=== PATIENT | male | born 1965 | race Caucasian/White ===

== ENCOUNTER 2017-10-03 17:13 | Emergency (ER) | END 2017-10-03 23:18 | disposition home or self-care (01) ==

== ENCOUNTER 2017-10-06 13:09 | Emergency (ER) | END 2017-10-06 13:25 | disposition home or self-care (01) ==

== ENCOUNTER 2017-12-05 17:20 | Inpatient (IN) | END 2017-12-06 11:15 | disposition home or self-care (01) | DRG 684 ==

== ENCOUNTER 2018-10-27 10:22 | Inpatient (IN) | payer MEDICAID ==
[~2018-10-27] VITALS: Ht 165.1 cm; Wt 71.3 kg
[~2018-10-27 10:22] MED LIST: ASPI-817 PO; ATOR20TA38 PO; BENA5TAB33 PO; CHOL100062 PO; Insulin Glargine SC; NOVO3I SC
[2018-10-27] MEDS ORDERED: ACETAMINOPHEN 325 MG TAB PO PRN ×2 (12:00→14:00)
[2018-10-27] MEDS ORDERED: ONDANSETRON 4 MG INJ IV PRN ×2 (12:00→14:00)
--- NOTE | 2018-10-27 12:15 | ERD ---
ER Documentation Chief Complaint Chief Complaint RIGHT LEG SWELLING X 2 WEEKS, SOB WHEN LYING DOWN, PALE HPI Patient is a 53-year-old male with diabetes and kidney failure who presents with bilateral leg swelling. The right is more swollen than the left. He denies pain. He unfortunately thinks he is going into acute renal failure as this happened in 10 years ago and needed to be on dialysis. He was able to get off of dialysis and has not had an issue since. Upon review of old medical records the patient has multiple visits for various complaints. ROS All systems reviewed and are negative except as per history of present illness. Medications Home Meds Active Scripts [Insulin Glargine] 100 UNITS/ML SOLN No Conflict Check, 20 UNITS SC DAILY@1999, #1 VIAL 1 Refill Prov:FRANCISCA JACOBSON 12/06/17 Insulin Aspart* (Novolog Insulin Pen*) 100 Unit/Ml Soln, 10 UNIT SC WITH MEALS, #1 VIAL 1 Refill Prov:FRANCISCA JACOBSON 12/06/17 Reported Medications Cholecalciferol* (Vitamin D3*) 1,000 Unit Tablet, 1000 UNIT PO DAILY, TAB 12/04/17 Atorvastatin Calcium* (Atorvastatin Calcium*) 20 Mg Tablet, 20 MG PO QHS, #30 TAB 12/04/17 Aspirin* (Aspirin* EC) 81 Mg Tablet.dr, 81 MG PO DAILY, TAB 12/04/17 Benazepril Hcl* (Benazepril Hcl*) 5 Mg Tablet, 5 MG PO DAILY, #30 TAB 12/04/17 Allergies Allergies: Coded Allergies: No Known Allergies (Verified Allergy, Mild, 12/04/17) PMhx/Soc History of Surgery: No Anesthesia Reaction: No Hx Neurological Disorder: No Hx Respiratory Disorders: No Hx Cardiac Disorders: Yes (HTN) Hx Psychiatric Problems: No Hx Miscellaneous Medical Probl: No Hx Alcohol Use: No Hx Substance Use: No Hx Tobacco Use: No Smoking Status: Never smoker FmHx Family History: No diabetes Physical Exam Vitals Vital Signs Date Temp Pulse Resp B/P (MAP) Pulse Ox O2 O2 Flow FiO2 Time Delivery Rate 10/27/18 97.8 101 18 155/95 98 10:26 (115) Physical Exam Const: No acute distress Head: Atraumatic Eyes: Normal Conjunctiva ENT: Normal External Ears, Nose and Mouth. Neck: Full range of motion. No meningismus. Resp: Clear to auscultation bilaterally Cardio: Regular rate and rhythm, no murmurs Abd: Soft, non tender, non distended. Normal bowel sounds Skin: No petechiae or rashes Back: No midline or flank tenderness Ext: 2+ pitting edema bilaterally Neur: Awake and alert Psych: Normal Mood and Affect Result Diagram: 10/27/18 1105 Results 24 hrs Laboratory Tests Test 10/27/18 11:05 White Blood Count Pending Red Blood Count Pending Hemoglobin Pending Hematocrit Pending Mean Corpuscular Volume Pending Mean Corpuscular Hemoglobin Pending Mean Corpuscular Hemoglobin Concent Pending Red Cell Distribution Width Pending Platelet Count Pending Mean Platelet Volume Pending Prothrombin Time 13.5 Sec Prothrombin Time Ratio 1.1 INR International Normalized Ratio 1.02 Activated Partial Thromboplast Time 27.8 Sec Sodium Level 139 mmol/L Potassium Level 4.2 mmol/L Chloride Level 111 mmol/L Carbon Dioxide Level 21 mmol/L Anion Gap 7 Blood Urea Nitrogen 36 mg/dl Creatinine 3.99 mg/dl Est Glomerular Filtrat Rate mL/min 16 mL/min Glucose Level 166 mg/dl Calcium Level 8.5 mg/dl Total Bilirubin 0.4 mg/dl Direct Bilirubin 0.00 mg/dl Indirect Bilirubin 0.4 mg/dl Aspartate Amino Transf (AST/SGOT) 25 IU/L Alanine Aminotransferase (ALT/SGPT) 28 IU/L Alkaline Phosphatase 122 IU/L Troponin I < 0.012 ng/ml Total Protein 6.2 g/dl Albumin 3.2 g/dl Globulin 3.00 g/dl Albumin/Globulin Ratio 1.06 Lipase 187 U/L Current Medications Medications Dose Sig/Melissa Start Time Status Last (Trade) Ordered Route PRN Stop Time Admin Dose Reason Admin Ondansetron 4 mg BRIDGE ORDER 10/27/18 HCl (Zofran PRN IV 12:00 Inj) NAUSEA/VOMITI 10/28/18 11:59 NG 650 mg ER BRIDGE 10/27/18 Acetaminophen PRN PO 12:00 (Tylenol .MILD PAIN 10/28/18 11:59 Tab) 1-3 OR TEMP Procedures/MDM Patient is a 53-year-old male who presents with acute renal failure. His creatinine is 3.99 and previous creatinine was 2. The patient will be admitted to the care of the panel team to a medical surgical bed. Unfortunately if he w orsens he may require dialysis. He does have bilateral leg swelling as well which is likely related to the renal failure. CBC is pending at this time as he does appear pale and may require transfusion if his hemoglobin is less than 7. Departure Diagnosis: Primary Impression: ARF (acute renal failure) Acute renal failure type: unspecified Qualified Codes: N17.9 - Acute kidney failure, unspecified Additional Impression: CHF (congestive heart failure) Heart failure type: unspecified Heart failure chronicity: acute Qualified Codes: I50.9 - Heart failure, unspecified Condition: CHELSEA Dasilva MD Oct 27, 2018 12:15
[2018-10-27] MEDS ORDERED: ASPI-817 PO (12:23)
[2018-10-27] MEDS ORDERED: ATOR20TA38 PO (12:24)
[2018-10-27] MEDS ORDERED: OMEP20CA16 PO (12:26)
--- NOTE | 2018-10-27 13:27 | HP ---
Date/Time of Note Date/Time of Note DATE: 10/27/18 TIME: 13:27 Assessment/Plan VTE Prophylaxis Pharmacological prophylaxis: heparin Lines/Catheters IV [facility] Saline Lock Assessment/Plan Hospital Course 53-year-old male with comorbidities including hypertension, dyslipidemia, DM type II, and chronic kidney disease who presented to the emergency room with chief complaint of progressively worsening bilateral lower extremity edema and dyspnea with evidence of acute on chronic kidney disease and bilateral pleural effusions, who will be admitted to inpatient setting for further treatment and evaluation. 1. Fluid overload. Most probably secondary to worsening renal function. Diuresis as per nephrology. Obtain 2D echocardiogram to evaluate left ventricular ejection fraction. 2. Acute on chronic kidney disease. Hold nephrotoxic medications. Obtain the nephrology consult. 3. Hypertension. Off antihypertensives at home. Started on PRN antihypertensives for high blood pressure readings. 4. Bilateral pleural effusions. Most probably secondary to worsening renal function. Diuresis as clinically indicated, while carefully monitoring renal function. 5. Normocytic, normochromic anemia. Most probably anemia chronic kidney disease. Monitor H&H closely. 6. Diabetes mellitus. Obtain hemoglobin A1c to evaluate the blood glucose control over the past 3 months. Start the patient on sliding scale insulin along with pre-meal insulin and basal insulin. Plan: The patient will be admitted to inpatient floor. The patient will be started on a low carbohydrate, renal diet. The patient will be started on DVT prophylaxis. The patient will remain a full code. Activities will be as tolerated. The rest of the patient's management will be based on the clinical course, inputs from consultants, and the results of diagnostic studies. Based on the patient's clinical presentation, he most probably requires at least 2 midnights' stay for further management and evaluation of his clinical presentation. The patient was seen in collaboration with Dr. Bingham. Result Diagram: 10/27/18 1105 10/27/18 1105 Results 24hrs Laboratory Tests Test 10/27/18 11:05 White Blood Count 4.4 #L Red Blood Count 3.19 L Hemoglobin 9.3 L Hematocrit 29.6 L Mean Corpuscular Volume 92.8 Mean Corpuscular Hemoglobin 29.2 Mean Corpuscular Hemoglobin Concent 31.4 L Red Cell Distribution Width 13.9 Platelet Count 346 Mean Platelet Volume 10.7 H Immature Granulocytes % 0.500 H Neutrophils % 64.8 Lymphocytes % 19.4 Monocytes % 10.0 Eosinophils % 2.3 Basophils % 3.0 H Nucleated Red Blood Cells % 0.0 Immature Granulocytes # 0.020 Neutrophils # 2.9 Lymphocytes # 0.9 Monocytes # 0.4 Eosinophils # 0.1 Basophils # 0.1 Nucleated Red Blood Cells # 0.0 Prothrombin Time 13.5 Prothrombin Time Ratio 1.1 INR International Normalized Ratio 1.02 Activated Partial Thromboplast Time 27.8 Sodium Level 139 Potassium Level 4.2 Chloride Level 111 H Carbon Dioxide Level 21 Anion Gap 7 Blood Urea Nitrogen 36 H Creatinine 3.99 H Est Glomerular Filtrat Rate mL/min 16 L Glucose Level 166 Calcium Level 8.5 Total Bilirubin 0.4 Direct Bilirubin 0.00 Indirect Bilirubin 0.4 Aspartate Amino Transf (AST/SGOT) 25 Alanine Aminotransferase (ALT/SGPT) 28 Alkaline Phosphatase 122 H Troponin I < 0.012 Total Protein 6.2 Albumin 3.2 L Globulin 3.00 Albumin/Globulin Ratio 1.06 Lipase 187 HPI/ROS Admit Date/Time Admit Date/Time Hx of Present Illness Reason for admission: Dyspnea bilateral lower extremity edema. Consultants 1. Neptali Quintana DO, Nephrology. This is a 53-year-old male with past medical history of diabetes mellitus type 2, chronic kidney disease stage III, and hypertension who came to the emergency room with chief complaint of progressively worsening bilateral lower extremity edema and dyspnea. The patient verbalized that he has been dyspneic while laying flat. Patient denied any chest pain. The patient denied any fevers or chills. He denied any cough. The patient verbalized that he had to be maintained on hemodialysis for a while in the remote past because of worsening renal function. The patient is compliant with all his home medications. In the emergency room, the patient was noticed to have a BUN/creatinine of 36 and 3.9 respectively. The patient's potassium level was within normal limits. The patient had a chest x-ray that was showing mildly increased density at both lung bases with bilateral pleural effusions larger on the left. ROS Constitutional: no complaints Eyes: no complaints ENT: no complaints Respiratory: shortness of breath Cardiovascular: edema, orthopenea Gastrointestinal: no complaints Genitourinary: no complaints Musculoskeletal: no complaints Skin: no complaints Neurologic: no complaints Endocrine: no complaints Lymphatic: no complaints Psychological: no complaints Immunologic: no complaints PMH/Family/Social Past Medical History 1. Hypertension. 2. Chronic kidney disease. 3. Dyslipidemia. 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 Works in a restaurant. Alcohol Use: none Smoking Status: Never smoker Drug Use: none Exam/Review of Systems Vital Signs Vitals Vital Signs Date Temp Pulse Resp B/P (MAP) Pulse Ox O2 O2 Flow FiO2 Time Delivery Rate 10/27/18 98.2 87 16 144/94 100 Room Air 13:00 (111) Exam Exam General: Adequately build 53 year-old male lying in bed in no apparent distress. HEENT: Normocephalic, atraumatic. Eyes: Anicteric sclerae, conjunctivae clear. ENT: Nasal septum midline, oral mucosa moist. Neck supple, JVD noticed. Respiratory: Bilaterally diminished breath sounds. No use of accessory muscles of respiration. Bibasilar Rales. Cardiovascular: S1, S2 heard. Regular rate and rhythm. Abdomen: Soft, nontender, and nondistended. Bowel sounds positive in all 4 quadrants. Genitourinary: Deferred. Extremities: No cyanosis, no clubbing. Bilateral lower extremity 2+ pitting edema. Neurologic: Cranial nerves II through XII grossly intact. The patient is awake, alert, and oriented. Additional Comments CXR IMPRESSION: 1. Mild increased density at both lung bases may all be due to atelectasis however rule out pneumonia. 2. Bilateral small pleural effusions larger on the left. 3. Mild cardiomegaly without definite congestive heart failure. ANA DOUGLAS NP Oct 27, 2018 13:27
[2018-10-27] MEDS ORDERED: FUROSEMIDE 20 MG INJ IV ONE (14:00)
[2018-10-27] MEDS ORDERED: NACL 0.9% 3 ML SYG IV SCH (14:00)
[2018-10-27] MEDS ORDERED: HYDROCODONE/APAP (5/325) TAB PO PRN (14:00)
[2018-10-27] MEDS ORDERED: hydrALAzine 20 MG INJ IV PRN (14:00)
[2018-10-27] MEDS ORDERED: GLUCOSE GEL 15 GRAM TUBE BUCCAL PRN (14:30)
[2018-10-27] MEDS ORDERED: DEXTROSE 50% 50 ML SYRINGE IV PRN ×2 (14:30)
[2018-10-27] MEDS ORDERED: GLUCAGON 1 MG INJ IM PRN (14:30)
[2018-10-27] MEDS ORDERED: GLUCOSE GEL 15 GRAM TUBE PO PRN ×2 (14:30)
[2018-10-27 14:38] VITALS: BP 149/98; PULSE 78; RESP 19; Ht 165.1 cm; Wt 71.3 kg
[2018-10-27] MEDS: HEPARIN 5,000 UNIT/1 ML VIAL SC SCH ×2 (14:54→22:32)
[2018-10-27] MEDS: INSULIN ASPART [NOVOLOG] 3 ML PEN SC SCH ×3 (17:55→21:00)
--- NOTE | 2018-10-27 18:33 | CONS ---
DATE OF ADMISSION: 10/27/2018 DATE OF CONSULTATION: 10/27/2018 TYPE OF CONSULTATION: Nephrology. REASON FOR CONSULTATION: Acute kidney injury. PHYSICIAN REQUESTING CONSULT: John Zavala NP HISTORY OF PRESENT ILLNESS: This is a 53-year-old male with a past medical history of hypertension, history of diabetes type 1, history of dyslipidemia, history of chronic kidney disease stage IV with previous baseline creatinine around 2.3 to 3.0 mg/dL who presents to [facility] wit h increased lower extremity swelling. The patient states in the past several days, he noted increase d swelling of his lower extremity with increased shortness of breath. As a result, the patient came into the emergency room for evaluation. Upon arrival, the patient has chest x-ray which showed incre ased densities at base with bilateral effusions, right greater than left. The patient was also noted to have a BUN of 36, creatinine 3.9. The patient was given IV diuretics and admitted to telemetry f or evaluation. In terms of patient's renal history, the patient has a history of CKD stage III-B/IV with previous ba seline creatinine between 2.3 to 3 mg/dL. The patient previously was on dialysis approximately 10 ye ars ago, episode of acute kidney injury which has since resolved. The patient is no longer dialysis dependent. The patient does see his primary pencil sorter and was told that his recent kidney functio n has been around 20%. He denies any hemoptysis, hematemesis, hematochezia. Denies any rashes, any frothy urine. PAST MEDICAL HISTORY: History of CKD stage IV, history of hypertension, history of diabetes. FAMILY HISTORY: No family history of kidney disease. SOCIAL HISTORY: Does not drink, smoke or do drugs. MEDICATIONS: Have been reviewed. PAST SURGICAL HISTORY: Has been reviewed. REVIEW OF SYSTEMS: A 14-point review of systems was conducted. Pertinent positives stated in HPI, o therwise negative. PHYSICAL EXAMINATION: VITAL SIGNS: Blood pressure is 149/98, respiration 19, pulse 78, temperature 98.0. HEENT: Head is normocephalic. NECK: Supple. The patient has elevated JVD. HEART: Regular rate. LUNGS: The patient has decreased breath sounds at base, positive crackles. ABDOMEN: Soft, nontender to palpation. No rebound or guarding. EXTREMITIES: Negative for clubbing, cyanosis. Positive edema. DERMATOLOGIC: No rashes. MUSCULOSKELETAL: No joint effusion. NEUROLOGIC: No focal deficits. LABORATORY DATA: Have been reviewed. IMAGING STUDIES: Have been reviewed. ASSESSMENT AND PLAN: This is a 53-year-old male who presents with: 1. Renal failure, possible nonoliguric acute kidney injury on top of chronic kidney disease stage IV versus progression of underlying chronic kidney disease. Possible etiology of acute kidney injury i s secondary to hemodynamics, questionable cardiorenal syndrome. Possibility of tubular injury is a c onsideration. Lower suspicion for acute glomerulonephritis or vasculitis given patient's clinical pr esentation; however, full evaluation will be done. We will check UA with microanalysis, check urine electrolytes, calculate a FENa, fraction excretion of urea. We will also quantify the patient's prot einuria. We will check a renal ultrasound to evaluate renal parenchyma and rule out obstruction. We would continue the patient on diuretic therapy as he is volume overloaded clinically. We would defe r any ALEKSANDR inhibitors or ARBs at this time. If the patient's renal function should further decline an d the patient's volume status cannot be adequately managed medically, we would consider initiating re nal replacement therapy. 2. Anemia. Monitor hemoglobin and hematocrit levels. 3. Mineral bone disorder. Monitor calcium and phosphorus levels. We will give phosphate binders as needed. 4. Metabolic acidosis. Continue to monitor. 5. Volume overload. Etiology is likely secondary to chronic kidney disease, acute kidney injury, po ssible congestive heart failure. We would recommend full evaluation. Check 2D echo. We will continu e diuretic therapy and monitor closely. 6. Hypertension. Continue current blood pressure regimen. 7. Bilateral pleural effusion. Continue current diuretic regimen and monitor closely. 8. Diabetes. Continue current insulin regimen. Thank you, John, for this interesting consult. It will be a pleasure to follow patient with you th roughout the hospital course. Dictated By: SHAWNA JC DO NR/NTS Conf#: [id number] DID#: [id number] CC: QUIQUE BUTT MD;*EndCC*
[2018-10-27 19:37] VITALS: BP 169/105; PULSE 88; RESP 18
[2018-10-27 21:50] VITALS: BP 176/95; PULSE 95
[2018-10-27] MEDS: INSULIN GLARGINE [LANTus] (100 UNITS/ML) SYG SC SCH (22:31)
[2018-10-27] MEDS: ATORVASTATIN 20 MG TAB PO SCH (22:32)
[2018-10-28 01:02] VITALS: BP 142/79; PULSE 100
[2018-10-28 02:00] VITALS: BP 145/72; PULSE 91; RESP 16
[2018-10-28] MEDS: HEPARIN 5,000 UNIT/1 ML VIAL SC SCH ×3 (06:40→23:04)
[2018-10-28] MEDS: INSULIN ASPART [NOVOLOG] 3 ML PEN SC SCH ×7 (07:50→21:00)
[2018-10-28 08:17] VITALS: BP 148/82; PULSE 96; RESP 18
[2018-10-28] MEDS: ASPIRIN (EC) 81 MG TAB PO SCH (08:32)
--- NOTE | 2018-10-28 09:26 | PN ---
DATE: 10/28/2018 SUBJECTIVE: The patient is clinically improving. The patient states his edema and shortness of yolanda th has mildly improved. Urinary output has improved with diuretic therapy. No other acute events no regina. No nausea, no vomiting, no metallic taste in his mouth. OBJECTIVE: VITAL SIGNS: Blood pressure is 148/82, respirations 18, pulse 96, temperature 98.3. HEENT: Head is normocephalic. NECK: Supple. HEART: Regular rate. LUNGS: Show diminished breath sounds at the base. Positive rales. ABDOMEN: Soft, nontender to palpation without rebound or guarding. EXTREMITIES: Negative for clubbing, cyanosis. Positive edema. DERMATOLOGIC: No rashes. MUSCULOSKELETAL: No joint effusion. NEUROLOGIC: No focal deficits. MEDICATIONS: Reviewed. LABORATORY DATA: Reviewed. IMAGING STUDIES: Reviewed. ASSESSMENT AND PLAN: 1. Nonoliguric acute kidney injury on top of chronic kidney disease stage IV, versus possible progre ssion of chronic kidney disease. Etiology of acute kidney injury is secondary to hemodynamics, quest ionable cardiorenal syndrome. Other possibilities such as obstruction, tubular injury or interstitia l nephritis are considerations. The patient's renal function has been stable after given diuretic th erapy. Recommendation at this point is to continue diuretic therapy. We will intensify Lasix to 40 mg IV b.i.d. We will follow up renal panel. Follow up urine electrolytes. Follow up renal ultrasoun d. Otherwise, continue current treatment plan, supportive care, renally dose all medications, no imm ediate need for renal replacement therapy at this time. We will monitor closely. 2. Volume overload. Etiology may be secondary to advanced kidney, possible congestive heart failure . We would recommend full evaluation. Consider checking 2D echo. Continue current diuretic therapy , monitor closely. 3. Anemia. Continue to monitor hemoglobin and hematocrit levels. 4. Mineral bone disorder, monitor calcium and phosphorus levels. 5. Metabolic acidosis. Continue to monitor. No immediate need for bicarbonate therapy. 6. Hypertension in part due to increased intravascular volume. Continue diuretic regimen. Continue current blood pressure regimen. Defer ALEKSANDR inhibitor or ARB at this time. 7. Bilateral pleural effusion. Continue current diuretic regimen. 8. Diabetes. Continue current insulin regimen. Dictated By: SHAWNA THOMPSON/NTS Conf#: [id number] DID#: [id number] CC: QUIQUE BUTT MD; SHAWNA CJ DO;*EndCC*
[2018-10-28] MEDS: FUROSEMIDE 40 MG INJ IV SCH ×2 (10:29→17:19)
[2018-10-28 13:43] VITALS: BP 150/91; PULSE 98; RESP 18
--- NOTE | 2018-10-28 15:09 | PN ---
Date/Time of Note Date/Time of Note DATE: 10/28/18 TIME: 14:40 Assessment/Plan VTE Prophylaxis Risk score (from Nsg)>0 risk: 3 SCD applied (from Nsg): Yes Pharmacological prophylaxis: heparin Lines/Catheters IV Catheter Type (from Nrs): Saline Lock Assessment/Plan Assessment/Plan 53-year-old man with comorbidities including hypertension, dyslipidemia, DM type II, and chronic kidney disease who presented to the emergency room with chief complaint of progressively worsening bilateral lower extremity edema and dyspnea with evidence of acute on chronic kidney disease and bilateral pleural effusions, who will be admitted to inpatient setting for further treatment and evaluation. # Fluid overload - Unclear etiology. Patient reports compliance with diet. - Not on diuretics at home. - May be due to gradually progressive worsening CKD. - Diuresis per nephrology # Acute on chronic kidney disease. - Hold nephrotoxic medications. - Now improving # Hypertension. - Off antihypertensives at home. - Started on PRN antihypertensives for high blood pressure readings. # Bilateral pleural effusions. - Now improving on diuresis - On room air # Diabetes mellitus. - She has been off insulin for past few months with good insulin control. Plan: Monitor overnight, plan for discharge tomorrow. Result Diagram: 10/28/18 0452 10/28/18 0452 Subjective 24 Hr Interval Summary Free Text/Dictation Patient doing well. Swelling greatly improved. Up walking around. Breathing comfortably on room air. I offered discharge but patient would prefer to stay overnight and make sure he's doing okay in the AM. Exam/Review of Systems Exam Vitals Vital Signs Date Temp Pulse Resp B/P (MAP) Pulse Ox O2 O2 Flow FiO2 Time Delivery Rate 10/28/18 97.4 98 18 150/91 98 13:43 (110) 10/27/18 Room Air 14:38 Intake and Output 10/27/18 10/27/18 10/28/18 1515:00 23:00 07:00 IntakeIntake Total 760 ml 600 ml OutputOutput Total 1500 ml 950 ml BalanceBalance -740 ml -350 ml Exam General: Adequately build 53 year-old male lying in bed in no apparent distress. HEENT: Normocephalic, atraumatic. Eyes: Anicteric sclerae, conjunctivae clear. ENT: Nasal septum midline, oral mucosa moist. Neck supple, JVD noticed. Respiratory: Bilaterally diminished breath sounds. No use of accessory muscles of respiration. Bibasilar Rales. Cardiovascular: S1, S2 heard. Regular rate and rhythm. Abdomen: Soft, nontender, and nondistended. Bowel sounds positive in all 4 quadrants. Extremities: No cyanosis, no clubbing. Bilateral lower extremity 1+ nonpitting edema. Results Results 24hrs Laboratory Tests Test 10/27/18 17:25 10/27/18 17:39 10/27/18 22:26 10/28/18 04:52 Bedside Glucose 138 149 Creatine Kinase 154 Creatine Kinase 3.1 Index Creatinine Kinase MB 4.74 H (Mass) Troponin I < 0.012 White Blood Count 3.9 L Red Blood Count 3.17 L Hemoglobin 9.0 L Hematocrit 28.7 L Mean Corpuscular 90.5 Volume Mean Corpuscular 28.4 L Hemoglobin Mean Corpuscular 31.4 L Hemoglobin Concent Red Cell 14.0 Distribution Width Platelet Count 327 Mean Platelet Volume 10.8 H Immature 0.300 Granulocytes % Neutrophils % 54.4 Lymphocytes % 24.7 Monocytes % 12.0 H Eosinophils % 4.8 Basophils % 3.8 H Nucleated Red Blood 0.0 Cells % Immature 0.010 Granulocytes # Neutrophils # 2.1 Lymphocytes # 1.0 Monocytes # 0.5 Eosinophils # 0.2 Basophils # 0.2 H Nucleated Red Blood 0.0 Cells # Sodium Level 143 Potassium Level 4.0 Chloride Level 114 H Carbon Dioxide Level 23 Anion Gap 6 Blood Urea Nitrogen 36 H Creatinine 3.72 H Est Glomerular 17 L Filtrat Rate mL/min Glucose Level 83 # Calcium Level 8.2 L Total Bilirubin 0.2 Direct Bilirubin 0.00 Indirect Bilirubin 0.2 Aspartate Amino 18 Transf (AST/SGOT) Alanine 27 Aminotransferase (AL T/SGPT) Alkaline Phosphatase 110 Total Protein 5.6 L Albumin 2.7 L Globulin 2.90 Albumin/Globulin 0.93 Ratio Triglycerides Level 79 Cholesterol Level 133 LDL Cholesterol, 69 Calculated HDL Cholesterol 48 Cholesterol/HDL 2.7 Ratio Test 10/28/18 04:53 10/28/18 08:26 10/28/18 09:15 10/28/18 12:45 Prothrombin Time 13.4 Prothrombin Time 1.0 Ratio INR International 1.01 Normalized Ratio Activated 28.2 Partial Thromboplast Time Phosphorus Level 4.3 Magnesium Level 2.1 Creatine Kinase 107 Creatine Kinase 4.2 Index Creatinine Kinase MB 4.47 H (Mass) Troponin I < 0.012 Bedside Glucose 71 125 Urine Color STRAW Urine Clarity CLEAR Urine pH 6.0 Urine Specific 1.012 [place] Urine Ketones NEGATIVE Urine Nitrite NEGATIVE Urine Bilirubin NEGATIVE Urine Urobilinogen NEGATIVE Urine Leukocyte NEGATIVE Esterase Urine Microscopic 1 RBC Urine Microscopic 1 WBC Urine Hemoglobin NEGATIVE Urine Random 60.79 Creatinine Urine Random Sodium 121 H Urine Glucose 1+ H Urine Total Protein > 600.0 H Medications Medication Current Medications IV Flush (NS 3 ml) 3 ml PER PROTOCOL IV Last administered on 10/27/18at 22:40; Admin Dose 3 ML; Start 10/27/18 at 14:00 Ondansetron HCl (Zofran Inj) 4 mg Q6H PRN IV NAUSEA/VOMITING; Start 10/27/18 at 14:00 Acetaminophen (Tylenol Tab) 650 mg Q6H PRN PO .PAIN 1-3 OR TEMP; Start 10/27/18 at 14:00 Acetaminophen/ Hydrocodone Bitart ([place] (5/325)) 1 tab Q6H PRN PO .PAIN 4-6; Start 10/27/18 at 14:00 Heparin Sodium (Porcine) (Heparin (5000 Units/1ml)) 5,000 unit Q8 SC Last administered on 10/28/18at 13:47; Admin Dose 5,000 UNIT; Start 10/27/18 at 14:00 Aspirin (Halfprin) 81 mg DAILY PO Last administered on 10/28/18at 08:32; Admin Dose 81 MG; Start 10/28/18 at 09:00 Atorvastatin Calcium (Lipitor) 20 mg QHS PO Last administered on 10/27/18at 22:32; Admin Dose 20 MG; Start 10/27/18 at 21:00 Hydralazine HCl (Apresoline) 10 mg Q6H PRN IV SBP>160 Last administered on 10/27/18at 22:33; Admin Dose 10 MG; Start 10/27/18 at 14:00 Insulin Glargine (Lantus) 11 units DAILY@2000 SC Last administered on 10/27/18at 22:31; Admin Dose 11 UNITS; Start 10/27/18 at 20:00 Insulin Aspart (Novolog Insulin Pen) 4 unit WITH MEALS SC ; Start 10/27/18 at 17:55 Insulin Aspart (Novolog Insulin Pen) NOVOLOG *MILD* ALGORITHM WITH MEALS BEDTIME SC ; Start 10/27/18 at 17:55 Miscellaneous Information 1 ea NOTE XX ; Start 10/27/18 at 14:30 Glucose (Glutose) 15 gm Q15M PRN PO DECREASED GLUCOSE; Start 10/27/18 at 14:30 Glucose (Glutose) 22.5 gm Q15M PRN PO DECREASED GLUCOSE; Start 10/27/18 at 14:30 Dextrose (D50w Syringe) 25 ml Q15M PRN IV DECREASED GLUCOSE; Start 10/27/18 at 14:30 Dextrose (D50w Syringe) 50 ml Q15M PRN IV DECREASED GLUCOSE; Start 10/27/18 at 14:30 Glucagon (Glucagen) 1 mg Q15M PRN IM DECREASED GLUCOSE; Start 10/27/18 at 14:30 Glucose (Glutose) 15 gm Q15M PRN BUCCAL DECREASED GLUCOSE; Start 10/27/18 at 14:30 Furosemide (Lasix) 40 mg BID DIURETICS IV Last administered on 10/28/18at 10:29; Admin Dose 40 MG; Start 10/28/18 at 09:30 ANGELINA VEGA MD Oct 28, 2018 15:09
--- NOTE | 2018-10-28 18:38 | RADRPT ---
Echocardiogram Report Patient Name: JAZMIN LORAPatient ID: [id number] : 1965 (53y 2m)Study Date: 10/27/2018 2:50:50 PM Gender: Aaron #: [id number] Tech: Jose Brothersagawa [facility] Location: [facility] Ref.Physician: ANA DOUGLAS Height(Cm): BSA: Weight(Kg): Quality: AdequateOrder Physician: ANA DOUGLAS Account #: Procedures: Echocardiographic Report: Transthoracic echocardiogram with complete 2D, M-Mode, and doppler examination. Indications: Evaluate Left Ventricular function. Measurements: 2D/M Mode Doppler Measurement Value Normal Range Measurement Value Normal Range LVIDd 2D 4.8 [ 4.2 - 5.8 ] cm AV Peak Robe 1.1 [ 100.0 - 170.0 ] cm/sec LVIDs 2D 4.3 [ 2.5 - 4.0 ] cm AV Peak PG 4.0 [ 2.0 - 9.0 ] mmHg LVPWd 2D 1.2 [ 0.6 - 1.0 ] cm LVOT Peak Robe 0.7 [ 70.0 - 110.0 ] cm/sec IVSd 2D 1.2 [ 0.6 - 1.0 ] cm LVOT Peak PG 2.0 [ 2.0 - 6.0 ] mmHg AoR Diam 2D 2.7 [ 2.6 - 3.4 ] cm MV E Peak Robe 0.8 [ 60.0 - 130.0 ] cm/sec EDV 2D 106.0 [ 62.0 - 150.0 ] ml MV A Peak Robe 0.6 [ 100.0 - 120.0 ] cm/sec ESV 2D 81.3 [ 21.0 - 61.0 ] ml MV E/A 1.5 [ 0.8 - 1.5 ] ratio EF 2D 23.3 [ 52.0 - 72.0 ] percent MV Decel Time 148 [ 104 - 258 ] msec LA Dimen 2D 3.7 [ 3.0 - 4.0 ] cm Lat E` Robe 0.1 [ 10.0 - 15.0 ] cm/sec Lateral E/E` 11.1 [ 1.0 - 2.0 ] ratio MV E/A 1.5 [ 0.8 - 1.5 ] ratio TR Peak Robe 3.0 [ 100.0 - 280.0 ] cm/sec TR Peak PG 35.0 mmHg RVSP 43.0 [ 10.0 - 36.0 ] mmHg Findings: Left Ventricle: Normal left ventricular cavity size. Left ventricular wall thickness upper limits of normal. Severe global left ventricular systolic dysfunction. Ejection fraction is visually estimated at 25 %. Tissue Doppler/Mitral Doppler indices are consistent with impaired relaxation (Stage I diastolic dysfunction). Right Ventricle: Normal right ventricular size. Normal right ventricular systolic function. Left Atrium: The left atrium is normal in size. Right Atrium: The right atrium is normal in size. Mitral Valve: Mild mitral leaflet calcification. Mild mitral annular calcification. Mild to moderate mitral valve regurgitation. Aortic Valve: No hemodynamically significant aortic stenosis by doppler. Aortic cusps appear mildly calcified. Trace aortic valve regurgitation. Tricuspid Valve: Normal appearance of the tricuspid valve. The estimated Peak RVSP is 43 mmHg. There is mild tricuspid regurgitation. Pericardium: Small to moderate pericardial effusion. No evidence of tamponade. Bilateral large pleural effusion seen. Aorta: Normal aortic root. IVC: Normal size with poor respiratory collapse consistent with elevated right atrial pressure. Conclusions: Normal left ventricular cavity size. Left ventricular wall thickness upper limits of normal. Severe global left ventricular systolic dysfunction. Ejection fraction is visually estimated at 25 %. Tissue Doppler/Mitral Doppler indices are consistent with impaired relaxation (Stage I diastolic dysfunction). Mild mitral leaflet calcification. Mild mitral annular calcification. Mild to moderate mitral valve regurgitation. No hemodynamically significant aortic stenosis by doppler. Aortic cusps appear mildly calcified. Trace aortic valve regurgitation. Normal appearance of the tricuspid valve. The estimated Peak RVSP is 43 mmHg. There is mild tricuspid regurgitation. Electronically Signed By: Panchito Saldivar 2018-10-28 18:38:07 PDT
[2018-10-28] MEDS: ATORVASTATIN 20 MG TAB PO SCH (22:08)
[2018-10-28] MEDS: INSULIN GLARGINE [LANTus] (100 UNITS/ML) SYG SC SCH (22:11)
[2018-10-29 02:10] VITALS: BP 138/71; PULSE 94; RESP 20
[2018-10-29] MEDS: FUROSEMIDE 40 MG INJ IV SCH (06:08)
[2018-10-29] MEDS: HEPARIN 5,000 UNIT/1 ML VIAL SC SCH ×2 (06:11→13:24)
[2018-10-29 07:43] VITALS: BP 125/68; PULSE 92; RESP 18
[2018-10-29] MEDS: INSULIN ASPART [NOVOLOG] 3 ML PEN SC SCH ×4 (07:50→13:10)
[2018-10-29] MEDS: ASPIRIN (EC) 81 MG TAB PO SCH (08:36)
--- NOTE | 2018-10-29 09:56 | PN ---
DATE: 10/29/2018 SUBJECTIVE: The patient is clinically improving. The patient states his shortness of breath and low er extremity edema is improving. No other events noted. OBJECTIVE: VITAL SIGNS: Blood pressure is 125/68, respiration 18, pulse 92, temperature 98.0. HEENT: Head is normocephalic. NECK: Supple. HEART: Regular rate. LUNGS: Show diminished breath sounds at the base. ABDOMEN: Soft, nontender to palpation without rebound or guarding. EXTREMITIES: Negative for clubbing, cyanosis. Trace edema. DERMATOLOGIC: No rashes. MUSCULOSKELETAL: No joint effusion. NEUROLOGIC: No change in exam. MEDICATIONS: Have been reviewed. LABORATORY DATA: Has been reviewed. IMAGING STUDIES: Have been reviewed. ASSESSMENT AND PLAN: 1. Nonoliguric acute kidney injury on top of chronic kidney disease stage IV versus possible progres cedric of chronic kidney disease. The patient's renal function has been overall stable. At this point , continue current diuretic regimen and monitor electrolytes and renal function closely. No immediat e need for renal replacement therapy at this time, the patient has no overt symptoms of uremia. 2. Volume overload, likely secondary to advanced chronic kidney disease, possible diastolic heart fa ilure. Continue management, continue diuretic regimen. 3. Anemia. Monitor hemoglobin and hematocrit levels. Will give Epogen as needed. 3. Mineral bone disorder. Monitor calcium and phosphorus levels. 4. Metabolic acidosis. Continue to monitor. No need for bicarbonate therapy. 5. Hypertension. Continue current blood pressure regimen. Defer ALEKSANDR inhibitor and ARB at this time . 6. Bilateral pleural effusions. Continue diuretic regimen. 7. Diabetes. Continue current insulin regimen. Dictated By: SHAWNA JC DO NR/NTS Conf#: [id number] DID#: [id number] CC: QUIQUE BUTT MD;*EndCC*
[2018-10-29] MEDS ORDERED: FURO40TA4 PO (11:44)
--- NOTE | 2018-10-29 11:54 | PDOCDIS ---
Discharge Instructions DIAGNOSIS Discharge Diagnosis Acute kidney injury CONDITION [id number] Patient Condition: [id number] Good HOME CARE INSTRUCTIONS: [id number] Diet Instructions: Hwaea2o Reduced Sodium ACTIVITY: Nmeoa2Sf Activity Restrictions: [id number] No Restrictions FOLLOW UP/APPOINTMENTS Follow-up Plan 1. Take all medications as prescribed. 2. See your dental practitioner as scheduled. 3. Return to the emergency room if you have difficulty breathing ANGELINA VEGA MD Oct 29, 2018 11:54
--- NOTE | 2018-10-29 16:29 | DS ---
Date/Time of Note Date/Time of Note DATE: 10/29/18 TIME: 16:26 Discharge Summary Admission/Discharge Info Admit Date/Time Oct 27, 2018 at 11:55 Discharge Date/Time Oct 29, 2018 at 14:50 Discharge Diagnosis Acute kidney injury Patient Condition: Good Hx of Present Illness Reason for admission: Dyspnea bilateral lower extremity edema. Consultants 1. Neptali Quintana DO, Nephrology. This is a 53-year-old male with past medical history of diabetes mellitus type 2, chronic kidney disease stage III, and hypertension who came to the emergency room with chief complaint of progressively worsening bilateral lower extremity edema and dyspnea. The patient verbalized that he has been dyspneic while laying flat. Patient denied any chest pain. The patient denied any fevers or chills. He denied any cough. The patient verbalized that he had to be maintained on hemodialysis for a while in the remote past because of worsening renal function. The patient is compliant with all his home medications. In the emergency room, the patient was noticed to have a BUN/creatinine of 36 and 3.9 respectively. The patient's potassium level was within normal limits. The patient had a chest x-ray that was showing mildly increased density at both lung bases with bilateral pleural effusions larger on the left. Hospital Course The patient was started on IV lasix with improvement in his leg edema and also creatinine. The patient explained that he was compliant with insulin until a few months ago, when he noticed his blood sugar was running very low. Since stopping insulin his blood sugar has been in the 140s-160s. At time of discharge Cr was stable at 3.7. He will be sent with PO lasix to take in case he develops swelling, not on a daily basis. Outpatient followup with his tax accounting manager. Home Meds Active Scripts Furosemide* (Furosemide*) 40 Mg Tablet, 40 MG PO DAILY PRN for Leg swelling, #30 TAB Take one pill if you gain more than 5 lbs or develop worsening leg swelling. Prov:ANGELINA VEGA MD 10/29/18 Reported Medications Omeprazole* (Omeprazole*) 20 Mg Capsule., 20 MG PO BID, #60 CAP 10/27/18 Atorvastatin Calcium* (Atorvastatin Calcium*) 20 Mg Tablet, 20 MG PO QHS, #30 TAB 10/27/18 Aspirin* (Aspirin* EC) 81 Mg Tablet., 81 MG PO DAILY, TAB 10/27/18 Discontinued Reported Medications Cholecalciferol* (Vitamin D3*) 1,000 Unit Tablet, 1000 UNIT PO DAILY, TAB 12/04/17 Atorvastatin Calcium* (Atorvastatin Calcium*) 20 Mg Tablet, 20 MG PO QHS, #30 TAB 12/04/17 Aspirin* (Aspirin* EC) 81 Mg Tablet.dr, 81 MG PO DAILY, TAB 12/04/17 Benazepril Hcl* (Benazepril Hcl*) 5 Mg Tablet, 5 MG PO DAILY, #30 TAB 12/04/17 Discontinued Scripts [Insulin Glargine] 100 UNITS/ML SOLN No Conflict Check, 20 UNITS SC DAILY@1999, #1 VIAL 1 Refill Prov:INDIRAFRANCISCA 12/06/17 Insulin Aspart* (Novolog Insulin Pen*) 100 Unit/Ml Soln, 10 UNIT SC WITH MEALS, #1 VIAL 1 Refill Prov:INDIRAFRANCISCA 12/06/17 Follow-up Plan 1. Take all medications as prescribed. 2. See your tax accounting manager as scheduled. 3. Return to the emergency room if you have difficulty breathing Primary Care Provider Not On Staff Doctor Time spent on discharge: > 30 minutes Pending Labs Laboratory Tests Test 10/28/18 17:17 10/28/18 22:06 10/29/18 04:52 10/29/18 08:35 Bedside 129 153 103 Glucose mg/dL (70-220) mg/dL (70-220) mg/dL (70-220) White Blood 4.2 Count 10^3/ul (4.8-1 0.8) Red Blood 3.08 Count 10^6/ul (4.70- 6.10) Hemoglobin 9.0 g/dl (14.0-18. 0) Hematocrit 28.1 % (42.0-52.0) Mean 91.2 Corpuscular fl (82.0-101.0 Volume ) Mean 29.2 Corpuscular pg (29.0-33.0) Hemoglobin Mean 32.0 Corpuscular g/dl (32.0-37. Hemoglobin Conc 0) ent Red Cell 13.8 Distribution % (11.5-14.5) Width Platelet Count 322 10^3/UL (140-4 15) Mean Platelet 10.9 Volume fl (7.4-10.4) Immature 0.200 Granulocytes % % (0.001-0.429 ) Neutrophils % 52.8 % (39.0-77.0) Lymphocytes % 27.3 % (15.0-51.0) Monocytes % 10.9 % (0.0-11.0) Eosinophils % 5.7 % (0.0-7.0) Basophils % 3.1 % (0.0-2.0) Nucleated Red 0.0 Blood Cells % /100WBC (0.0-0 .0) Immature 0.010 Granulocytes # 10^3/ul (0.0-0 .031) Neutrophils # 2.2 10^3/ul (1.6-7 .5) Lymphocytes # 1.2 10^3/ul (0.8-2 .9) Monocytes # 0.5 10^3/ul (0.3-0 .9) Eosinophils # 0.2 10^3/ul (0.0-0 .5) Basophils # 0.1 10^3/ul (0.0-0 .1) Nucleated Red 0.0 Blood Cells # 10^3/ul (0.0-0 .0) Sodium Level 139 mmol/L (135-14 4) Potassium 3.9 Level mmol/L (3.5-5. 1) Chloride Level 109 mmol/L (97-110 ) Carbon Dioxide 24 Level mmol/L (21-31) Anion Gap 6 (5-13) Blood Urea 35 Nitrogen mg/dl (7-20) Creatinine 3.74 mg/dl (0.61-1. 24) Est Glomerular 17 Filtrat mL/min (>60) Rate mL/min Glucose Level 81 mg/dl (70-220) Calcium Level 8.2 mg/dl (8.4-10. 2) Phosphorus 4.4 Level mg/dl (2.5-4.9 ) Magnesium 1.9 Level mg/dl (1.7-2.5 ) Test 10/29/18 13:04 Bedside 100 Glucose mg/dL (70-220) ANGELINA VEGA MD Oct 29, 2018 16:29
[2018-10-29] MEDS ORDERED: BUMETANIDE 1 MG TAB PO SCH (18:00)
== END 2018-10-29 14:50 | disposition home or self-care (01) | DRG 683 ==
LOC: E/R 10:22 → MS1 11:55
PROVIDERS: ADMIT Family Medicine; ATTEND Internal Medicine
DX: N17.9 Acute kidney failure, unspecified (principal); E87.2 Acidosis; I12.9 Hypertensive chronic kidney disease with stage 1 through stage 4 chronic kidney disease, or unspecified chronic kidney disease; E11.22 Type 2 diabetes mellitus with diabetic chronic kidney disease; E78.5 Hyperlipidemia, unspecified; D64.9 Anemia, unspecified; N18.3 Chronic kidney disease, stage 3 (moderate); Z89.022 Acquired absence of left finger(s)
CPT/HCPCS: 71045; 76775; 80048; 80053; 80061; 81001; 81003; 82043; 82550; 82553; 82962; 83036; 83690; 83735; 83880; 84100; 84155; 84300; 84439; 84443; 84484; 85025; 85610; 85730; 86850; 86900; 86901; 93005; 93306; 93971; J0360; J1644; J1815; J1940

== ENCOUNTER 2019-03-13 02:10 | Inpatient (IN) | payer MEDICAID ==
[~2019-03-13] VITALS: Ht 165.1 cm; Wt 66.6 kg
[~2019-03-13 02:10] MED LIST changes: -BENA5TAB33 PO; +BUME1TAB3 PO; +CARV3.1260 PO; -CHOL100062 PO; +CIPR750T3 PO; +CLIN300C10 PO; +FURO20TA3 PO; +GLIP5TAB13 ORAL; +HYDR-3670 PO; +ISOS5TAB2 PO; -Insulin Glargine SC; -NOVO3I SC
[2019-03-13] MEDS ORDERED: FUROSEMIDE 40 MG INJ IV ONE ×2 (04:30→06:00)
[2019-03-13] MEDS ORDERED: ACETAMINOPHEN 325 MG TAB PO PRN (06:00)
[2019-03-13] MEDS ORDERED: NACL 0.9% 3 ML SYG IV SCH (06:00)
[2019-03-13] MEDS ORDERED: PIPER-TAZO 2.25 GM (PMX) 50 ML IVPB ONE (06:00)
[2019-03-13] MEDS ORDERED: ALBUTEROL/IPRATROPIUM (NEB) 3 ML AMP HHN PRN (06:00)
[2019-03-13] MEDS ORDERED: VANCOMYCIN 1 GM (PMX) 250 ML IVPB ONE (06:00)
[2019-03-13] MEDS ORDERED: ONDANSETRON 4 MG INJ IV PRN (06:00)
[2019-03-13] MEDS ORDERED: GLUCOSE GEL 15 GRAM TUBE PO PRN ×2 (06:30)
[2019-03-13] MEDS ORDERED: DEXTROSE 50% 50 ML SYRINGE IV PRN ×2 (06:30)
[2019-03-13] MEDS ORDERED: GLUCOSE GEL 15 GRAM TUBE BUCCAL PRN (06:30)
[2019-03-13] MEDS ORDERED: GLUCAGON 1 MG INJ IM PRN (06:30)
[2019-03-13 08:27] VITALS: Ht 165.1 cm; Wt 66.6 kg
[2019-03-13] MEDS: INSULIN ASPART [NOVOLOG] 3 ML PEN SC SCH ×4 (08:30→20:51)
[2019-03-13 08:38] VITALS: BP 155/86; PULSE 93; RESP 17
[2019-03-13] MEDS ORDERED: FUROSEMIDE 20 MG TAB PO SCH (09:00)
[2019-03-13] MEDS ORDERED: FUROSEMIDE 20 MG INJ IV ONE (10:00)
[2019-03-13] MEDS: ASPIRIN (EC) 81 MG TAB PO SCH (10:52)
[2019-03-13] MEDS: ISOSORBIDE DINITRATE 5 MG TAB PO SCH ×3 (10:56→20:50)
[2019-03-13] MEDS ORDERED: EPOETIN ALFA-EPBX (ESRD) 10,000 UNIT/ML VIAL SC ONE (11:00)
[2019-03-13 11:04] VITALS: BP 170/91; PULSE 90; RESP 18
[2019-03-13 11:13] VITALS: BP 160/90; PULSE 72; PULSE 89; RESP 20
[2019-03-13] MEDS: INSULIN GLARGINE [LANTus] (100 UNITS/ML) SYG SC SCH (11:57)
[2019-03-13 15:19] VITALS: BP 164/94; PULSE 92; RESP 20
[2019-03-13] MEDS: FUROSEMIDE 40 MG INJ IV SCH (17:46)
[2019-03-13 19:36] VITALS: BP 155/86; PULSE 95; RESP 20
[2019-03-13] MEDS: ATORVASTATIN 20 MG TAB PO SCH (20:49)
[2019-03-13 23:24] VITALS: BP 143/82; PULSE 92; RESP 20
[2019-03-14] MEDS: ACCU-CHEK XX SCH (02:00)
[2019-03-14 04:23] VITALS: BP 148/82; PULSE 93; RESP 20
[2019-03-14] MEDS ORDERED: FUROSEMIDE 40 MG INJ IV SCH (06:00)
[2019-03-14] MEDS: FUROSEMIDE 40 MG INJ IV SCH ×2 (06:01→17:25)
[2019-03-14] MEDS: INSULIN ASPART [NOVOLOG] 3 ML PEN SC SCH ×4 (08:00→20:53)
[2019-03-14 08:43] VITALS: BP 147/82; PULSE 91; RESP 18
[2019-03-14] MEDS: ASPIRIN (EC) 81 MG TAB PO SCH (08:47)
[2019-03-14] MEDS: ISOSORBIDE DINITRATE 5 MG TAB PO SCH ×3 (08:48→20:52)
[2019-03-14] MEDS: INSULIN GLARGINE [LANTus] (100 UNITS/ML) SYG SC SCH (11:01)
[2019-03-14 12:58] VITALS: BP 148/80; PULSE 84; RESP 18
[2019-03-14 15:15] VITALS: BP 151/76; PULSE 85; RESP 20
[2019-03-14 19:18] VITALS: BP 146/77; PULSE 88; RESP 20
[2019-03-14] MEDS: ATORVASTATIN 20 MG TAB PO SCH (20:51)
[2019-03-14] MEDS: GENTAMICIN 0.1% 15 GM OINT TOP SCH (20:52)
[2019-03-14 23:40] VITALS: BP 141/74; PULSE 89; RESP 18
[2019-03-15] VITALS (17 sets, daily range): BP systolic 121–165; BP diastolic 57–98; PULSE 76–97; RESP 14–19
[2019-03-15] MEDS: ACCU-CHEK XX SCH (02:00)
[2019-03-15] MEDS: FUROSEMIDE 40 MG INJ IV SCH (06:02)
[2019-03-15] MEDS: INSULIN ASPART [NOVOLOG] 3 ML PEN SC SCH ×4 (08:00→20:54)
[2019-03-15] MEDS: INSULIN GLARGINE [LANTus] (100 UNITS/ML) SYG SC SCH (08:00)
[2019-03-15] MEDS: GENTAMICIN 0.1% 15 GM OINT TOP SCH ×2 (08:44→20:55)
[2019-03-15] MEDS: ISOSORBIDE DINITRATE 5 MG TAB PO SCH ×3 (08:44→20:54)
[2019-03-15] MEDS: ASPIRIN (EC) 81 MG TAB PO SCH (08:44)
[2019-03-15] MEDS: SOD FERRIC GLUC COMPLX 125 MG in SOD CHLORIDE 0.9% 100 ML IVPB SCH (12:30)
[2019-03-15] MEDS ORDERED: PROPOFOL 20 ML ONE (14:38)
[2019-03-15] MEDS ORDERED: LIDOCAINE 100 MG SYRINGE ONE (14:38)
[2019-03-15] MEDS ORDERED: ROPIVACAINE 0.5 % 30 ML VIAL ONE (14:38)
[2019-03-15] MEDS ORDERED: FENTAnyl 50 MCG/ML VIAL ONE (14:40)
[2019-03-15] MEDS ORDERED: MIDAZOLAM 1 MG/ML 2 ML INJ ONE (14:41)
[2019-03-15] MEDS ORDERED: VANCOMYCIN 1 GM INJ ONE (15:23)
[2019-03-15] MEDS ORDERED: TOBRAMYCIN 1.2 GM POWDER ONE (15:23)
[2019-03-15] MEDS ORDERED: POLYMYXIN/BACITRACIN 1L IRRIG IRR ONE (15:37)
[2019-03-15] MEDS: BUMETANIDE 1 MG TAB PO SCH (17:18)
[2019-03-15] MEDS: ATORVASTATIN 20 MG TAB PO SCH (20:53)
[2019-03-16] MEDS: ACCU-CHEK XX SCH (01:39)
[2019-03-16 03:52] VITALS: BP 140/75; PULSE 101; RESP 19
[2019-03-16] MEDS: BUMETANIDE 1 MG TAB PO SCH ×2 (05:30→17:35)
[2019-03-16 07:23] VITALS: BP 136/71; PULSE 94; RESP 20
[2019-03-16] MEDS: GENTAMICIN 0.1% 15 GM OINT TOP SCH ×2 (07:57→20:16)
[2019-03-16] MEDS: INSULIN ASPART [NOVOLOG] 3 ML PEN SC SCH ×4 (08:00→21:00)
[2019-03-16] MEDS: ISOSORBIDE DINITRATE 5 MG TAB PO SCH ×3 (08:14→20:51)
[2019-03-16] MEDS: ASPIRIN (EC) 81 MG TAB PO SCH (08:15)
[2019-03-16] MEDS: INSULIN GLARGINE [LANTus] (100 UNITS/ML) SYG SC SCH (08:25)
[2019-03-16 11:17] VITALS: BP 130/78; PULSE 83; RESP 20
[2019-03-16] MEDS: SOD FERRIC GLUC COMPLX 125 MG in SOD CHLORIDE 0.9% 100 ML IVPB SCH (12:59)
[2019-03-16] MEDS: CEFTRIAXONE 1 GM/50 ML (PMX) 50 ML IVPB SCH (14:46)
[2019-03-16 15:17] VITALS: BP 158/81; PULSE 97; RESP 20
[2019-03-16 19:20] VITALS: BP 152/78; PULSE 103; RESP 19
[2019-03-16] MEDS: ATORVASTATIN 20 MG TAB PO SCH (20:50)
[2019-03-17] VITALS: BP 124/69; PULSE 91; RESP 18
[2019-03-17] MEDS: ACCU-CHEK XX SCH (02:00)
[2019-03-17 03:43] VITALS: BP 114/62; PULSE 84; RESP 18
[2019-03-17] MEDS: BUMETANIDE 1 MG TAB PO SCH ×2 (05:50→17:27)
[2019-03-17 07:56] VITALS: BP 132/64; PULSE 91; RESP 20
[2019-03-17] MEDS: INSULIN ASPART [NOVOLOG] 3 ML PEN SC SCH ×4 (08:00→20:45)
[2019-03-17] MEDS: INSULIN GLARGINE [LANTus] (100 UNITS/ML) SYG SC SCH (08:53)
[2019-03-17] MEDS: ISOSORBIDE DINITRATE 5 MG TAB PO SCH ×3 (08:54→20:46)
[2019-03-17] MEDS: ASPIRIN (EC) 81 MG TAB PO SCH (08:56)
[2019-03-17] MEDS: GENTAMICIN 0.1% 15 GM OINT TOP SCH ×2 (08:57→20:50)
[2019-03-17 11:33] VITALS: BP 144/78; PULSE 81; RESP 20
[2019-03-17] MEDS: SOD FERRIC GLUC COMPLX 125 MG in SOD CHLORIDE 0.9% 100 ML IVPB SCH (12:37)
[2019-03-17] MEDS: CEFTRIAXONE 1 GM/50 ML (PMX) 50 ML IVPB SCH (14:54)
[2019-03-17 15:16] VITALS: BP 145/76; PULSE 86; RESP 20
[2019-03-17 19:00] VITALS: BP 152/74; PULSE 78; RESP 20
[2019-03-17] MEDS: ATORVASTATIN 20 MG TAB PO SCH (20:45)
[2019-03-18] VITALS: BP 135/72; PULSE 79; RESP 18
[2019-03-18] MEDS: ACCU-CHEK XX SCH (02:00)
[2019-03-18] MEDS: BUMETANIDE 1 MG TAB PO SCH ×2 (06:12→17:08)
[2019-03-18 07:19] VITALS: BP 127/60; PULSE 90; RESP 20
[2019-03-18] MEDS: INSULIN ASPART [NOVOLOG] 3 ML PEN SC SCH ×4 (08:00→21:00)
[2019-03-18] MEDS: ASPIRIN (EC) 81 MG TAB PO SCH (08:29)
[2019-03-18] MEDS: INSULIN GLARGINE [LANTus] (100 UNITS/ML) SYG SC SCH (08:30)
[2019-03-18] MEDS: ISOSORBIDE DINITRATE 5 MG TAB PO SCH ×3 (08:32→21:00)
[2019-03-18] MEDS: GENTAMICIN 0.1% 15 GM OINT TOP SCH ×2 (08:33→21:00)
[2019-03-18 11:17] VITALS: BP 149/79; PULSE 85; RESP 20
[2019-03-18] MEDS: CEFTRIAXONE 1 GM/50 ML (PMX) 50 ML IVPB SCH (15:27)
[2019-03-18 15:51] VITALS: BP 142/71; PULSE 89; RESP 20
[2019-03-18 20:13] VITALS: BP 150/84; PULSE 93; RESP 16
[2019-03-18] MEDS: ATORVASTATIN 20 MG TAB PO SCH (21:48)
[2019-03-19] MEDS: ACCU-CHEK XX SCH (02:00)
[2019-03-19 02:18] VITALS: BP 131/73; PULSE 89; RESP 18
[2019-03-19] MEDS: BUMETANIDE 1 MG TAB PO SCH ×2 (05:48→17:48)
[2019-03-19 07:16] VITALS: BP 128/73; PULSE 91; RESP 18
[2019-03-19] MEDS: INSULIN ASPART [NOVOLOG] 3 ML PEN SC SCH ×4 (08:00→20:33)
[2019-03-19] MEDS: ISOSORBIDE DINITRATE 5 MG TAB PO SCH ×3 (08:17→20:32)
[2019-03-19] MEDS: ASPIRIN (EC) 81 MG TAB PO SCH (08:18)
[2019-03-19] MEDS: GENTAMICIN 0.1% 15 GM OINT TOP SCH ×2 (09:00→20:34)
[2019-03-19] MEDS ORDERED: SOD FERRIC GLUC COMPLX 125 MG in SOD CHLORIDE 0.9% 100 ML IVPB SCH (13:00)
[2019-03-19 13:52] VITALS: BP 158/83; PULSE 87; RESP 19
[2019-03-19] MEDS: CEFTRIAXONE 1 GM/50 ML (PMX) 50 ML IVPB SCH (14:15)
[2019-03-19] MEDS ORDERED: EPOETIN ALFA-EPBX (NON-ESRD 10,000 UNIT/ML VIAL SC SCH (17:00)
[2019-03-19 19:30] VITALS: BP 159/88; PULSE 100; RESP 18
[2019-03-19] MEDS: ATORVASTATIN 20 MG TAB PO SCH (20:32)
== END 2019-03-19 21:15 | disposition home or self-care (01) | DRG 629 ==
LOC: E/R 02:10 → 6WM 05:37 → 2NE 03-18 19:50
PROVIDERS: ADMIT Internal Medicine; ATTEND Internal Medicine
PROC: 0QBN0ZZ Excision of Right Metatarsal, Open Approach (ICD-10-PCS; principal; 2019-03-15 12:30)
PROC: 30233N1 Transfusion of Nonautologous Red Blood Cells into Peripheral Vein, Percutaneous Approach (ICD-10-PCS; 2019-03-19)
DX: E11.621 Type 2 diabetes mellitus with foot ulcer (principal); I50.22 Chronic systolic (congestive) heart failure; E87.2 Acidosis; M86.9 Osteomyelitis, unspecified; I42.9 Cardiomyopathy, unspecified; L02.611 Cutaneous abscess of right foot; M86.8X7 Other osteomyelitis, ankle and foot; I13.2 Hypertensive heart and chronic kidney disease with heart failure and with stage 5 chronic kidney disease, or end stage renal disease; N18.5 Chronic kidney disease, stage 5; N17.9 Acute kidney failure, unspecified; E11.8 Type 2 diabetes mellitus with unspecified complications; E11.42 Type 2 diabetes mellitus with diabetic polyneuropathy; E11.69 Type 2 diabetes mellitus with other specified complication; E11.22 Type 2 diabetes mellitus with diabetic chronic kidney disease; E11.21 Type 2 diabetes mellitus with diabetic nephropathy; L97.519 Non-pressure chronic ulcer of other part of right foot with unspecified severity; E87.70 Fluid overload, unspecified; E78.5 Hyperlipidemia, unspecified; Z79.4 Long term (current) use of insulin; D63.8 Anemia in other chronic diseases classified elsewhere; D63.1 Anemia in chronic kidney disease; B35.1 Tinea unguium; Z89.022 Acquired absence of left finger(s); Z91.14 Patient's other noncompliance with medication regimen
CPT/HCPCS: 36430; 71045; 73630; 73718; 80048; 80053; 81001; 81003; 82043; 82728; 82962; 83540; 83735; 83880; 84100; 84155; 84300; 84484; 85025; 85610; 85730; 86850; 86900; 86901; 86920; 87070; 87075; 87081; 87102; 88305; 88311; 93005; 96374; 97110; 97116; 97161; 97166; 97530; J0696; J1815; J1940; J2001; J2250; J2543; J2795; J2916; J3010; J3370; L3260; P9016; Q5105; Q5106